=== PATIENT | female | born 1945 | race Caucasian/White ===

== ENCOUNTER 2017-03-18 22:24 | Inpatient (IN) ==
[2017-03-18] MEDS ORDERED: Lidocaine 1% 20 ML MDV INFILT ONE (22:36)
[2017-03-18] MEDS ORDERED: *HR* Morphine 2 MG/ML SYRINGE IVP ONE (22:49)
[2017-03-18] MEDS ORDERED: Ondansetron 4 MG/2 ML VIAL IVP ONE (23:12)
[2017-03-18] MEDS ORDERED: diazePAM 10 MG/2 ML SYRINGE IVP STA (23:24)
--- NOTE | 2017-03-18 23:34 | Emergency Department Note ---
Disposition Clinical Impression: Hypoxia Radial fracture Qualifiers: Encounter type: initial encounter Radius location: distal Fracture type: closed Fracture morphology: unspecified fracture morphology Laterality: left Qualified Code(s): S52.502A - Unspecified fracture of the lower end of left radius, initial encounter for closed fracture Ulna fracture Qualifiers: Encounter type: initial encounter Ulna location: distal Fracture type: closed Fracture morphology: unspecified fracture morphology Laterality: left Qualified Code(s): S52.602A - Unspecified fracture of lower end of left ulna, initial encounter for closed fracture Disposition: Admitted As Inpatient Condition: Good Time of Disposition: 03:15 Fall HPI - General Chief Complaint: ED Fall Stated Complaint: Fall Time Seen by Provider: 03/18/17 22:32 Source: patient, EMS Mode of arrival: EMS Limitations: no limitations Nursing Notes Reviewed: Yes Vital Signs Reviewed: Yes - History of Present Illness HPI Narrative: Patient is a 71-year-old female presents to the emergency department after a fall. She states that around 6:30 PM she fell backwards and tried to catch herself. She was evaluated at [facility] and x-rays were obtained showing fractures of both radius and ulna and she was transferred here. Patient states that when she fell she hit her head. No loss of consciousness. She denies any blood thinners. She currently is nauseated and in pain. She also states that her left hip hurts. She was standing at ground level when she fell backwards. Patient had some decreased sensation appears in some difficulty with movement of the fingers. - Related Data Home Medications Medication Instructions Recorded Confirmed Escitalopram [Lexapro] 10 mg PO DAILY 03/18/17 03/18/17 Meloxicam [Mobic] 7.5 mg PO BID PRN 03/18/17 03/18/17 Omeprazole 20 mg PO DAILY 03/18/17 03/18/17 Allergies Allergy/AdvReac Type Severity Reaction Status Date / Time aspirin Allergy See Verified 03/18/17 20:02 Comments codeine Allergy See Verified 03/18/17 20:02 Comments Sulfa (Sulfonamide Allergy Rash Verified 03/18/17 20:02 Antibiotics) Iodinated Contrast- Oral and AdvReac Hives Verified 03/18/17 22:26 IV Dye All systems ED: reviewed and negative except as stated. 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 Absent: respiratory distress, wheezes - Cardiovascular Cardiovascular exam: Present: regular rate, normal rhythm, +S1, +S2 - Abdominal Exam Abdominal exam: Present: soft, Non-Tender, normal bowel sounds - Extremities Exam Extremities exam: Present: other (Injury to the left wrist and forearm. Angulation of the left forearm) - Neurological Exam Neurological exam: Present: alert, oriented X3, CN II-XII intact - Psychiatric Psychiatric exam: Present: normal affect, normal mood - Skin Skin exam: Present: warm, dry, intact Course Vital Signs Temperature 97.5 F L 03/18/17 22:27 Pulse Rate 69 03/18/17 22:27 Respiratory Rate 20 03/18/17 22:27 Blood Pressure 151/65 03/18/17 22:27 O2 Sat by Pulse Oximetry 92 03/18/17 22:27 Temperature 97.5 F L 03/18/17 22:27 Pulse Rate 66 03/19/17 02:53 Respiratory Rate 16 03/19/17 03:11 Blood Pressure 0/0 03/19/17 03:11 O2 Sat by Pulse Oximetry 96 03/19/17 02:53 Oxygen Delivery Oxygen Delivery Room Air Procedures - Orthopedic Fracture Reduction Fracture #1 Consent Obtained: verbal consent Time Out Performed: No Side: left Fracture Reduction Location: radius, ulna ASA Classification: CLASS III-Severe systemic disease Analgesia: hematoma block Technique: direct manipulation, traction/counter-traction, finger traps Post Reduction X-rays Demonstrate: acceptable reduction Post-reduction neuro exam: intact Post-reduction vascular exam: intact Splint Applied: Yes (Sugar tong splint was applied post reduction) Patient Tolerated Procedure: well Fall - MDM Narrative Medical decision making narrative: Patient is a 71-year-old female that was transferred here for [facility]. She has a left forearm fracture. While talking to the patient she states that she also hit her head, has left upper arm pain, and left hip pain. We have ordered a CT of the head and neck, x-ray of the left humerus, and x-ray of the left hip. The patient has been put in to finger trap traction to try and help relax the muscles and reduce the fracture. Dr. Cespedes spoke with the orthopedist Dr. Robledo and he said that it would be reasonable to reduce it and splinted and they would see her tomorrow and do a surgical reduction. The patient's arm was reduced and post reduction films were ordered. On post-reduction films there was not full reduction so we attempted a second reduction. A second post reduction film was ordered. This is the best positioning that we could obtain from the reduction. Patient was neurovascularly intact post reduction After the reduction the patient remains hypoxic so we will admit the patient to the hospital.. - Medical Records Medical records reviewed: Yes I reviewed the patient's medical records. - Radiology Data Radiology results reviewed: Yes I reviewed the patient's radiology results. Forearm X-Ray 03/18/17 22:49 IMPRESSION: Acute fractures of the distal left radius and ulna. The radial fracture is dorsally displaced, mildly dorsally angulated and overlapped. D/ / Baldomero Davis MD / Baldomero Davis MD Interpreting Provider: Baldomero Davis MD Forearm X-Ray 03/18/17 22:49 IMPRESSION: Acute fractures of the distal left radius and ulna. The radial fracture is dorsally displaced, mildly dorsally angulated and overlapped. D/ / Baldomero Davis MD / Baldomero Davis MD Interpreting Provider: Baldomero Davis MD Wrist X-Ray 03/19/17 01:37 IMPRESSION: No change in alignment. D/ / Vamsi Ohara MD / Vamsi Ohara MD Interpreting Provider: Vamsi Ohara MD Chest X-Ray 03/19/17 02:16 IMPRESSION: Diffuse increased interstitial change throughout the lungs bilaterally, which may be chronic and related to COPD, though possibly related to pneumonitis or pulmonary edema as we have no comparison studies. Left basilar airspace disease which may represent atelectasis or pneumonia. D/ / Solitario Reyes MD / Solitario Reyes MD Interpreting Provider: Solitario Reyes MD Cervical Spine CT 03/19/17 22:49 IMPRESSION: No acute abnormality of the cervical spine. D/ / Vamsi Ohara MD / Vamsi Ohara MD Interpreting Provider: Vmasi Ohara MD Head CT 03/19/17 22:49 IMPRESSION: No acute intracranial abnormality. D/ / Katie Garza Cha, MD / Kaite Garza Cha, MD Interpreting Provider: Katie Garza Cha, MD Humerus X-Ray 03/19/17 22:49 IMPRESSION: No acute bony abnormality. D/ / Katie Garza Cha, MD / Katie Garza Cha, MD Interpreting Provider: Katie Garza Cha, MD Hip X-Ray 03/19/17 23:01 IMPRESSION: No evidence of an acute fracture. D/ / Baldomero Davis MD / Baldomero Davis MD Interpreting Provider: Baldomero Davis MD - EKG Data EKG attestation: Yes I reviewed and interpreted this EKG. EKG results narrative: EKG shows sinus rhythm with first-degree AV block and a heart rate of [address] interval 216 QRS duration 102 QTC of 434 with a slight left axis deviation. With an incomplete right bundle block Attestation Statement - Attestation Attestation: I, Daniel Bruno, examined this patient and my medical decision-making was reviewed with the OIL CHANGER/PA/Advanced Practice Nurse/Resident Physician. I agree with the documented findings, disposition and treatment plan as described except to the extent set forth below. 71-year-old female presents to the emergency department for evaluation of left forearm fracture. Patient apparently was reaching behind, lost balance and fell backward catching herself on her arm. Patient had immediate pain and deformity of the left forearm. Patient does report hitting her head but denies loss of consciousness. Patient describes this as a mechanical fall and denies near syncopal symptoms. On x-ray the patient has fractures of both the distal radius and ulna of the left forearm. There is dorsal angulation of the ulna at about 45 degrees, there is complete translocation and shortening of the radius. Resident spoke with Dr. Robledo who recommended using a finger trap, reducing the fractures and splinting with a sugar tong splint and following up in the office in the a.m. in order to schedule surgery. Patient is neurovascularly intact, and has good motion of the fingers of the left hand. After discussion of risks and benefits and verbal consent obtained. We performed a hematoma block of the fractures of the left arm and performed a reduction. This reduction improved the fracture but it did not reduce it completely. The reduction was again performed with a repeat x-ray which showed again improvement of the fracture however it is not completely in place. On reevaluation the patient became hypoxic after administration of morphine and Valium however it is been multiple hours since the administration of her medications and she desaturated to 85% on room air. Patient denies a history of lung disease. Chest x-ray does not show pneumothorax or hemothorax. Patient denies chest pain or feeling short of breath. Patient will be admitted to the hospital for further care and observation for her hypoxia and she will likely need to see his orthopedic surgeon in the a.m. for reevaluation of her fractures.
[2017-03-19] MEDS ORDERED: Ondansetron 4 MG/2 ML VIAL IVP ONE (00:43)
[2017-03-19] MEDS ORDERED: Promethazine 25 MG in 0.9 % Sodium Chloride 50 ML IVPB ONE (02:36)
[2017-03-19 04:03] LABS: Basophils % 0.6 %; Eosinophils % 0.3 %; Hematocrit 44.6 % (35.3-44.9); Hemoglobin 14.5 g/dL (11.5-15.4); Immature Granulocytes % 0.3 % (0-4); Immature Platelets 4.9 % (1.1-6.1); Lymphocytes % 14.4 %; Mean Corpuscular HGB Conc 32.5 g/dL (31.6-35.5); Mean Corpuscular Hemoglobin 30.9 pg (28.0-33.3); Mean Corpuscular Volume 95.1 fL (83.0-100.0); Mean Platelet Volume 10.3 fL (9.4-12.4); Monocytes # 0.5 K/mcL (0.0-1.3); Monocytes % 7.5 %; Neutrophils # 5.3 K/mcL (1.6-8.9); Platelet Count 222 K/mcL (140-400); Red Blood Count 4.69 M/mcL (3.82-4.97); Red Cell Distribution Width 12.7 % (11.5-14.5); Segmented Neutrophils % 76.9 %
[2017-03-19 04:17] LABS: BUN/Creatinine Ratio 28 (6-26); Blood Urea Nitrogen 25 mg/dL (7-20); Calcium 9.1 mg/dL (8.6-10.8); Carbon Dioxide 23 mEq/L (19-29); Chloride 109 mEq/L (98-109); Glucose 123 mg/dL (70-99); Osmolality,Calculated 298 (280-300); Potassium 4.2 mEq/L (3.5-4.5); Sodium 141 mEq/L (136-145); eGFR For African Americans > 60 (> 60); eGFR For Non-African Americans > 60 (> 60)
[2017-03-19] MEDS ORDERED: Naloxone 0.4 MG/ML INJ IVP PRN (05:51)
[2017-03-19] MEDS ORDERED: Ketorolac 30 MG/ML VIAL IVP PRN (05:51)
[2017-03-19] MEDS ORDERED: 0.9 % Sodium Chloride 1,000 ML IVC SCH (06:00)
--- NOTE | 2017-03-19 06:07 | Internal Med History&Physical ---
Date of Encounter: 03/19/17 Time of Encounter: 05:00 Assessment and Plan (1) Hypoxia Current visit: Yes Status: Acute Patient received morphine and Valium in the emergency department. I suspect her hypoxia is possibly related to her underlying COPD (Chronic h/o smoking and stopped about 5 years ago), and combination of morphine and valium (However acute pulmonary pathology need to be excluded). Will obtain ABG and check BNP. CXR reported "Diffuse increased interstitial change throughout the lungs bilaterally, which may be chronic and related to COPD, though possibly related to pneumonitis or pulmonary edema as we have no comparison studies. Left basilar airspace disease which may represent atelectasis or pneumonia." - WIll reapeat 2 view CXR. Will assess walking puls eox prior to discharge. (2) Fracture of radius, distal, with ulna, closed Current visit: Yes Status: Acute Pain relief with ketorolac. Orthopedic consultation Qualifiers: Encounter type: initial encounter Laterality: left Qualified Code(s): S52.502A - Unspecified fracture of the lower end of left radius, initial encounter for closed fracture; S52.602A - Unspecified fracture of lower end of left ulna, initial encounter for closed fracture (3) DVT prophylaxis Current visit: Yes Status: Acute Sub Q heparin to start after surgery Internal Medicine - H&P: HPI Chief complaint: Hypoxia Admitted From: Emergency Dept Plans for Post Hospital Care: Home History of present illness: Ms. Daley is a 71 year old female presented to the emergency department after a fall (mechanical fall with no loss of consciousness) and was evaluated at ER at [place] and x-rays were obtained showing fractures of both radius and ulna and she was transferred to the ER at [facility]. Imaging again showed Acute fractures of the distal left radius and ulna. CT scan of the head and cervical spine showed no acute fractures. ER provider discussed with Orthopedic surgeon Dr Betancourt and attempted reduction in the ER. The plan was for the pt to f /u with Dr Betancourt for operative reduction. However the patient became hypoxic after administration of morphine and Valium and hypoxic to 85% on room air. Hence she is admitted to the hospitalist service for further management. Patient reports pain in the left forearm, which is moderate and nonradiating. She denies significant shortness of breath, cough, expectoration, chest pain, fevers, chills, nausea, vomiting, abdominal pain, dysuria, hematuria, change in bowel habits. CXR done in the ER reported "Diffuse increased interstitial change throughout the lungs bilaterally, which may be chronic and related to COPD, though possibly related to pneumonitis or pulmonary edema as we have no comparison studies. Left basilar airspace disease which may represent atelectasis or pneumonia." Past Med Surg Social Fam HX - Past Medical History Medical history: arthritis, GERD Psychiatric history: depression - Social History Smoking Status: Former smoker Alcohol use: none Drug use: none - Family History Father Name: sulaiman lynn Living Status: Age at : 67 Cause of : lung cancer Hx Family Cancer: Yes (lung) Internal Medicine - H&P: Meds Escitalopram [Lexapro] 10 mg PO DAILY 03/18/17 [History] Meloxicam [Mobic] 7.5 mg PO BID PRN 03/18/17 [History] Omeprazole 20 mg PO DAILY 03/18/17 [History] Allergies aspirin Allergy (Verified 03/18/17 20:02) See Comments epistaxis codeine Allergy (Verified 03/18/17 20:02) See Comments unknown reaction, doctor told her not to take it Sulfa (Sulfonamide Antibiotics) Allergy (Verified 03/18/17 20:02) Rash Iodinated Contrast- Oral and IV Dye Adverse Reaction (Verified 03/18/17 22:26) Hives All Systems PM: A 10-system review of systems was performed and is negative for pertinent findings except as documented above in the HPI. - Constitutional Vitals: Temp Pulse Resp BP Pulse Ox 97.5 F L 66 16 0/0 90 03/18/17 22:27 03/19/17 02:53 03/19/17 03:11 03/19/17 03:11 03/19/17 03:43 Exam: General: Somnulent and easily arousable HEENT: Oral mucosa is dry. No conjunctival palor or scleral icterus Neck: No obvious neck swellings Lungs: Clear to auscultation Cardiac: Regular rate and rhythm. Systolic murmur present Abdomen: Soft, non tender. Bowel sounds present Genitourinary: No de jesus catheter Neurological: Somnulent and easily arousableand oriented. No gross localizing deficits Psych: Not aggressive or agitated Extremities: no significant leg edema. Cast to the left forearm present Skin: No generalized rash Internal Med - H&P Results - Labs CBC & Chem 7: 03/19/17 03:43 03/19/17 03:43 Labs: Short CBC 03/19/17 Range/Units 03:43 WBC 6.9 (4.3-11.1) K/mcL Hgb 14.5 (11.5-15.4) g/dL Hct 44.6 (35.3-44.9) % Plt Count 222 (140-400) K/mcL Neutrophils # 5.3 (1.6-8.9) K/mcL BMP 03/19/17 03:43 Sodium 141 Potassium 4.2 Chloride 109 Carbon Dioxide 23 BUN 25 H Creatinine 0.90 Glucose 123 H Calcium 9.1 - EKG Data -: EKG Interpreted by Myself EKG shows normal: sinus rhythm - EKG Data EKG comments: Q wave in lead III, T inversion in aVL 03/19/17 06:10 - Impressions ITS Impressions ITS Impressions Forearm X-Ray 03/18/17 22:49 IMPRESSION: Acute fractures of the distal left radius and ulna. The radial fracture is dorsally displaced, mildly dorsally angulated and overlapped. D/ / Baldomero Davis MD / Baldomero Davis MD Interpreting Provider: Baldomero Davis MD Wrist X-Ray 03/19/17 00:10 IMPRESSION: Distal radius and ulnar fractures. D/ / Katie Garza Cha, MD / Katie Garza Cha, MD Interpreting Provider: Katie Garza Cha, MD Wrist X-Ray 03/19/17 01:37 IMPRESSION: No change in alignment. D/ / Vamsi Ohara MD / Vamsi Ohara MD Interpreting Provider: Vamsi Ohara MD Chest X-Ray 03/19/17 02:16 IMPRESSION: Diffuse increased interstitial change throughout the lungs bilaterally, which may be chronic and related to COPD, though possibly related to pneumonitis or pulmonary edema as we have no comparison studies. Left basilar airspace disease which may represent atelectasis or pneumonia. D/ / Solitario Reyes MD / Solitario Reyes MD Interpreting Provider: Solitario Reyes MD Cervical Spine CT 03/19/17 22:49 IMPRESSION: No acute abnormality of the cervical spine. D/ / Vamsi Ohara MD / Vamsi Ohara MD Interpreting Provider: Vamsi Ohara MD Head CT 03/19/17 22:49 IMPRESSION: No acute intracranial abnormality. D/ / Katie Garza Cha, MD / Katie Garza Cha, MD Interpreting Provider: Katie Garza Cha, MD Humerus X-Ray 03/19/17 22:49 IMPRESSION: No acute bony abnormality. D/ / Katie Garza Cha, MD / Katie Garza Cha, MD Interpreting Provider: Katie Garza Cha, MD Hip X-Ray 03/19/17 23:01 IMPRESSION: No evidence of an acute fracture. D/ / Baldomero Davis MD / Baldomero Davis MD Interpreting Provider: Baldomero Davis MD
[2017-03-19] MEDS ORDERED: Pantoprazole 40 MG VIAL IVP SCH (06:30)
[2017-03-19 11:12] LABS: ABG Base Excess -0.1 mEq/L (-2.0 to 3.0); ABG HCO3 26.8 mEQ/L (21-27); ABG Oxygen Saturation 87 % (95-98); ABG PCO2 52 mmHg (35-45); ABG PH 7.32 pH Units (7.32-7.45); ABG PO2 58 mmHg (85-104); ABG TCO2 28.4 mEq/L (20-26); Blood Gas FiO2 32 %
[2017-03-19] MEDS ORDERED: Ipratropium/Albuterol Neb 3 ML IH PRN (13:46)
--- NOTE | 2017-03-19 13:57 | Internal Med Progress Note ---
Date of Encounter: 03/19/17 Time of Encounter: 13:55 - Time Spent With Patient 1. Acute hypoxia - medication induced 2. Chronic COPD - not on home O2 dependent Her hypoxia mostly due to heavy high dose morphine / valium induced also some physical deconditioning noticed will try to wean her off the O2 as she tolerates may need home O2 eval in AM d/c IVF cut back on pain meds PT / OT eval ordered Duonebs PRN ordered encourage frequent spirometry 3. Left distal radius and ulnar fx Splint on Ortho on board possible surgery in one week PT / OT eval ordered - Subjective Interval history: Ms. Daley is a 71 year old female presented to the emergency department after a fall (mechanical fall with no loss of consciousness) and was evaluated at ER at [place] and x-rays were obtained showing fractures of both radius and ulna and she was transferred to the ER at [facility]. Imaging again showed Acute fractures of the distal left radius and ulna. CT scan of the head and cervical spine showed no acute fractures. ER provider discussed with Orthopedic surgeon Dr Betancourt and attempted reduction in the ER. The plan was for the pt to f /u with Dr Betancourt for operative reduction. However the patient became hypoxic after administration of morphine and Valium and hypoxic to 85% on room air. Hence she is admitted to the hospitalist service for further management. Pt is still on O2 NC, however she is more alert, awake and O x3. Denied any CP / SOB. Still c/o severe pain in Left forearm - Constitutional Vitals: Temp Pulse Resp BP Pulse Ox 98.0 F 69 20 98/63 93 03/19/17 10:56 03/19/17 10:56 03/19/17 10:56 03/19/17 10:56 03/19/17 10:56 General appearance: Present: A&O X 3, pleasant - Respiratory Respiratory exam: Present: decreased breath sounds, wheezes. Absent: rales, respiratory distress, rhonchi - Cardiovascular Cardiovascular exam: Present: RRR, +S1, +S2. Absent: diastolic murmur, gallop, rubs, systolic murmur - GI/Abdominal GI/Abdominal exam: Present: soft. Absent: rebound, rigid, tenderness - Extremities Exam Additional comments: splint placed on Lefr fore arm and wrist. able to wigle her left hand fingers.. no swelling noticed. Internal Medicine: Result - Labs CBC & Chem 7: 03/19/17 03:43 03/19/17 03:43 Labs: Short CBC 03/19/17 Range/Units 03:43 WBC 6.9 (4.3-11.1) K/mcL Hgb 14.5 (11.5-15.4) g/dL Hct 44.6 (35.3-44.9) % Plt Count 222 (140-400) K/mcL Neutrophils # 5.3 (1.6-8.9) K/mcL BMP 03/19/17 03:43 Sodium 141 Potassium 4.2 Chloride 109 Carbon Dioxide 23 BUN 25 H Creatinine 0.90 Glucose 123 H Calcium 9.1 - ABG Interpretation ABG results: ABG ABG pH 7.32 pH Units (7.32-7.45) 03/19/17 11:00 ABG pCO2 52 mmHg (35-45) H 03/19/17 11:00 ABG pO2 58 mmHg (85-104) L 03/19/17 11:00 ABG O2 Saturation 87 % (95-98) L 03/19/17 11:00 - Impressions Impressions Chest X-Ray 03/19/17 06:17 IMPRESSION: Stable exam. D/ / 03/19/2017 07:52:46 Larry Zacarias MD / jessica Interpreting Provider: Larry Zacarias MD Cervical Spine CT 03/19/17 22:49 IMPRESSION: No acute abnormality of the cervical spine. D/ / Vamsi Ohara MD / Vamsi Ohara MD Interpreting Provider: Vamsi Ohara MD Head CT 03/19/17 22:49 IMPRESSION: No acute intracranial abnormality. D/ / Katie Garza Cha, MD / Katie Garza Cha, MD Interpreting Provider: Katie Garza Cha, MD Humerus X-Ray 03/19/17 22:49 IMPRESSION: No acute bony abnormality. D/ / Katie Garza Cha, MD / Katie Garza Cha, MD Interpreting Provider: Katie Garza Cha, MD Hip X-Ray 03/19/17 23:01 IMPRESSION: No evidence of an acute fracture. D/ / Baldomero Davis MD / Baldomero Davis MD Interpreting Provider: Baldomero Davis MD Consult Discharge Plan - Plan Referrals: Unassigned,Provider [Primary Care Provider] -
--- NOTE | 2017-03-19 13:57 | Orthopedic Consult Note ---
Date of Encounter: 03/19/17 Time of Encounter: 13:15 Assessment and Plan (1) Fracture of radius, distal, with ulna, closed Current Visit: Yes Status: Acute Patient has left distal radius and ulnar fractures which will require surgical fixation. Dr. Betancourt will perform left distal radius and distal ulnar ORIF next week on outpatient basis. The procedure as well as r/b/a were discussed with patient and family who expressed understanding and consent for surgery was signed. steel turner from office with call patient on 03/22/17 to schedule this. Discussed with hospitalist and he will confirm medical clearance for surgery. Keep splint in place until surgery. Continue to elevate and ice left arm. Continue finger ROM. Pain control per hospitalist. Qualifiers: Encounter type: initial encounter Laterality: left Qualified Code(s): S52.502A - Unspecified fracture of the lower end of left radius, initial encounter for closed fracture; S52.602A - Unspecified fracture of lower end of left ulna, initial encounter for closed fracture History of Present Illness Chief complaint: left wrist pain HPI: Ms. Daley is a 71 year old female who fell yesterday after losing her balance and fell on outstretched hands. She has instant left wrist pain. Xrays in ER showed left distal radius and distal ulna fractures which were reduced in the ER last night. Patient did become hypoxic and was admitted for this. She is feeling better today but continues to have moderate constant aching pain in the wrist since the fall and admits to numbness/tingling in fingers. Denies chest pain, SOB, fever currently. Past Med Surg Social Fam HX - Past Medical History Medical history: arthritis, GERD Psychiatric history: depression - Social History Smoking Status: Former smoker Alcohol use: none Drug use: none - Family History Father Name: sulaiman lynn Living Status: Age at : 67 Cause of : lung cancer Hx Family Cancer: Yes (lung) Medications and Allergies Escitalopram [Lexapro] 10 mg PO DAILY 03/18/17 [History] Omeprazole 20 mg PO DAILY 03/18/17 [History] Ibuprofen [Motrin] 200 - 800 mg PO Q6HR PRN 03/19/17 [History] Allergies aspirin Allergy (Verified 03/18/17 20:02) See Comments epistaxis codeine Allergy (Verified 03/18/17 20:02) See Comments unknown reaction, doctor told her not to take it Sulfa (Sulfonamide Antibiotics) Allergy (Verified 03/18/17 20:02) Rash Iodinated Contrast- Oral and IV Dye Adverse Reaction (Verified 03/18/17 22:26) Hives All Systems Reviewed: A 10-system review of systems was performed and is negative for pertinent findings except as documented above in the HPI. - Constitutional Constitutional: as per HPI - Cardiovascular Cardiovascular: as per HPI - Respiratory Respiratory: as per HPI - Musculoskeletal Musculoskeletal: as per HPI Physical Exam - Constitutional Vitals: Temp Pulse Resp BP Pulse Ox 98.0 F 69 20 98/63 93 03/19/17 10:56 03/19/17 10:56 03/19/17 10:56 03/19/17 10:56 03/19/17 10:56 - Wrist & Hand left Location of pain: dorsal wrist, volar wrist (left sugar tong splint intact and clean, mild swelling and ecchymosis to fingers. limited ROM of fingers secondary to pain. NV intact with brisk cap refill.) Results - Labs Result Diagrams: 03/19/17 03:43 03/19/17 03:43 Labs: Abnormal lab results ABG pCO2 52 mmHg (35-45) H 03/19/17 11:00 ABG pO2 58 mmHg (85-104) L 03/19/17 11:00 ABG Total CO2 28.4 mEq/L (20-26) H 03/19/17 11:00 ABG O2 Saturation 87 % (95-98) L 03/19/17 11:00 BUN 25 mg/dL (7-20) H 03/19/17 03:43 BUN/Creatinine Ratio 28 (6-26) H 03/19/17 03:43 Glucose 123 mg/dL (70-99) H 03/19/17 03:43 B-Natriuretic Peptide 115 pg/mL (0-100) H 03/19/17 03:43 H & H 03/19/17 Range/Units 03:43 Hgb 14.5 (11.5-15.4) g/dL Hct 44.6 (35.3-44.9) % All other labs normal. - Diagnostic results Wrist/Hand x-ray: report reviewed, image reviewed Consult Discharge Plan - Plan Referrals: Unassigned,Provider [Primary Care Provider] - - Attending Attestation Case and plan of care discussed with supervising physician who was available for all aspects of care.
[2017-03-19] MEDS: traMADol 50 MG TABLET PO PRN ×2 (14:45→20:52)
--- NOTE | 2017-03-19 17:28 | Electrocardiograph Report ---
[address] [address] Test Date: 2017-03-19 Pat Name: Ester Daley Department: 102 Room: [facility] Gender: F Alarm Signaler: Soledad : 1945 Requested By: Torrey Lux Order Number: [id number] Reading MD: Brian Samaniego DO Measurements Intervals [place] Rate: 66 P: 44 NC: 216 QRS: -21 QRSD: 102 T: 19 QT: 421 QTc: 434 Interpretive Statements SINUS RHYTHM WITH FIRST DEGREE AV BLOCK LEFTWARD AXIS INCOMPLETE RIGHT BUNDLE BRANCH BLOCK Electronically Signed On 03-19-2017 17:26:53 EDT by Brian Samaniego DO
[2017-03-20] MEDS: traMADol 50 MG TABLET PO PRN ×4 (03:52→22:35)
--- NOTE | 2017-03-20 12:41 | Internal Med Progress Note ---
Date of Encounter: 03/20/17 Time of Encounter: 12:39 - Assessment and plan (1) Acute respiratory failure with hypoxia Current Visit: Yes Status: Acute Assessment and plan: Pt is still hypoxic However her HR / RR everything benign Pt does not seem to be in severe SOB / QIU reviewed f/u CXR this AM - no acute changes noticed Her hypoxia could be due to underling COPD with current de conditioning will change her RENAN Duoneb Encourage more frequent incentive spirometry may need to go home on O2 will talk to CM / SW pt is not in COPD exacerbation no need of INH /Systemic steroids Pt may need to stay in the hospital more than 2 nights due to her complex medical problems, so will switch her to full admission today. I reviewed Dr. Chinchilla's H & P including HPI, PMH, PSH ,SH, FH and ROS, no changes noticed (2) COPD (chronic obstructive pulmonary disease) Current Visit: Yes Status: Chronic Assessment and plan: not in exacerbation cont duoneb and o2 Qualifiers: Qualified Code(s): J44.9 - Chronic obstructive pulmonary disease, unspecified (3) Former heavy cigarette smoker (20-39 per day) Current Visit: Yes Status: Acute Assessment and plan: Pt did quit smoking 5 yrs ago (4) Fracture of radius, distal, with ulna, closed Current Visit: Yes Status: Acute Assessment and plan: cont splint cont Tramadol PRN PT / OT Ortho scheduled for surgery as an out pt Qualifiers: Encounter type: initial encounter Laterality: left Qualified Code(s): S52.502A - Unspecified fracture of the lower end of left radius, initial encounter for closed fracture; S52.602A - Unspecified fracture of lower end of left ulna, initial encounter for closed fracture (5) DVT prophylaxis Current Visit: Yes Status: Acute Assessment and plan: on Lovenox - Subjective Interval history: Ms. Daley is a 71 year old female presented to the emergency department after a fall (mechanical fall with no loss of consciousness) and was evaluated at ER at [place] and x-rays were obtained showing fractures of both radius and ulna and she was transferred to the ER at [facility]. Imaging again showed Acute fractures of the distal left radius and ulna. CT scan of the head and cervical spine showed no acute fractures. ER provider discussed with Orthopedic surgeon Dr Betancourt and attempted reduction in the ER. The plan was for the pt to f /u with Dr Betancourt for operative reduction. However the patient became hypoxic after administration of morphine and Valium and hypoxic to 85% on room air. Hence she is admitted to the hospitalist service for further management. Pt is still on O2 NC at 3 lit, however she is more alert, awake and O x3. Denied any CP / SOB. Pain in Left forearm is tolerable with Tramadol pain meds - Constitutional Vitals: Temp Pulse Resp BP Pulse Ox 98.4 F 76 16 119/67 95 03/20/17 06:18 03/20/17 06:18 03/20/17 06:18 03/20/17 06:18 03/20/17 06:18 General appearance: Present: A&O X 3, pleasant - Respiratory Respiratory exam: Present: decreased breath sounds, wheezes. Absent: rales, respiratory distress, rhonchi - Cardiovascular Cardiovascular exam: Present: RRR, +S1, +S2. Absent: diastolic murmur, gallop, rubs, systolic murmur - GI/Abdominal GI/Abdominal exam: Present: normal bowel sounds, soft. Absent: rebound, tenderness - Extremities Exam Additional comments: splint placed on Lefr fore arm and wrist. able to wiggle her left hand fingers.. no swelling noticed. - Psychiatric Psychiatric exam: Present: normal affect, normal mood Internal Medicine: Result - Labs CBC & Chem 7: 03/19/17 03:43 03/19/17 03:43 - ABG Interpretation ABG results: ABG ABG pH 7.32 pH Units (7.32-7.45) 03/19/17 11:00 ABG pCO2 52 mmHg (35-45) H 03/19/17 11:00 ABG pO2 58 mmHg (85-104) L 03/19/17 11:00 ABG O2 Saturation 87 % (95-98) L 03/19/17 11:00 - Impressions Impressions Chest X-Ray 03/20/17 09:55 IMPRESSION: Chronic findings without acute process. D/ / Amanda Nava MD / Amanda Nava MD Interpreting Provider: Amanda Nava MD Consult Discharge Plan - Plan Referrals: Unassigned,Provider [Primary Care Provider] -
[2017-03-20] MEDS: Ipratropium/Albuterol Neb 3 ML IH SCH ×2 (16:01→21:35)
[2017-03-21] MEDS: Ipratropium/Albuterol Neb 3 ML IH SCH ×3 (04:10→15:39)
[2017-03-21] MEDS: traMADol 50 MG TABLET PO PRN ×2 (04:57→12:13)
[2017-03-21] MEDS ORDERED: *HR* Enoxaparin 40 MG/0.4 ML SYRINGE SQ SCH (06:00)
[2017-03-21 12:42] VITALS: BP 117/68
--- NOTE | 2017-03-21 12:48 | Discharge Summary ---
Date of Encounter: 03/21/17 Time of Encounter: 12:46 - Discharge Diagnosis (1) Acute respiratory failure with hypoxia Priority: Primary Status: Acute Comments: needed continuous home O2 at 2 lit (2) COPD (chronic obstructive pulmonary disease) Priority: Secondary Status: Chronic Qualifiers: Qualified Code(s): J44.9 - Chronic obstructive pulmonary disease, unspecified (3) Former heavy cigarette smoker (20-39 per day) Priority: Secondary Status: Acute (4) Fracture of radius, distal, with ulna, closed Priority: Primary Status: Acute Qualifiers: Encounter type: initial encounter Laterality: left Qualified Code(s): S52.502A - Unspecified fracture of the lower end of left radius, initial encounter for closed fracture; S52.602A - Unspecified fracture of lower end of left ulna, initial encounter for closed fracture - Discharge Medications Home Medications: Escitalopram [Lexapro] 10 mg PO DAILY 03/18/17 [History] Omeprazole 20 mg PO DAILY 03/18/17 [History] Ibuprofen [Motrin] 200 - 800 mg PO Q6HR PRN 03/19/17 [History] Albuterol Sulfate [Ventolin Hfa] 18 gm IH Q6H PRN #1 [id number] 03/21/17 [Rx] Allergies/Adverse Reactions: Allergies aspirin Allergy (Verified 03/18/17 20:02) See Comments epistaxis codeine Allergy (Verified 03/18/17 20:02) See Comments unknown reaction, doctor told her not to take it Sulfa (Sulfonamide Antibiotics) Allergy (Verified 03/18/17 20:02) Rash Iodinated Contrast- Oral and IV Dye Adverse Reaction (Verified 03/18/17 22:26) Hives Date of admission: 03/20/17 12:37 Primary care physician: Provider Unassigned Consults: Ortho Dr. Spike Betancourt - Patient Status Disposition: Home, Self-Care Condition: Good - Discharge Instructions Follow Up With: Unassigned,Provider [Primary Care Provider] - - Diet and Activity Activity: as per physical therapy, increase activity as tolerated Diet: advance to your usual diet Hospital course: Ms. Daley is a 71 year old female presented to the emergency department after a fall (mechanical fall with no loss of consciousness) and was evaluated at ER at [place] and x-rays were obtained showing fractures of both radius and ulna and she was transferred to the ER at [facility]. Imaging again showed Acute fractures of the distal left radius and ulna. CT scan of the head and cervical spine showed no acute fractures. ER provider discussed with Orthopedic surgeon Dr Betancourt and attempted reduction in the ER. The plan was for the pt to f /u with Dr Betancourt for operative reduction. However the patient became hypoxic after administration of morphine and Valium and hypoxic to 85% on room air. Hence she is admitted to the hospitalist service for further management. Pt was paced in observation and continued symptomatic and supportive care. We tried to wean her off the O2, but she still required 2 lit O2 continuously. Her initial hypoxia could be due to pain medication, however it seems to she does have COPD which might be contributing to her hypoxia. So we will arrange for home O2 for her to go home. need out pt f/u with PCP and possible pulmonary function tests as an out pt. Regarding Left forearm fx, pt was seen by ortho Dr. Spike Betancourt who recommend to cont current plint and f/u with him as an out pt in one week he will schedule for out pt surgery. Pt getting discharged home in stable condition today. Since she is still functioning well,does walk around a lot, she may need portable home O2 too. Will talk to about this. - Time Spent with Patient Total time spent providing and/or coordinating discharge services: - Constitutional Vitals: Temp Pulse Resp BP Pulse Ox 98.5 F 87 16 117/68 91 03/21/17 10:15 03/21/17 10:15 03/21/17 10:22 03/21/17 10:15 03/21/17 10:22 General appearance: Present: A&O X 3, pleasant - Respiratory Respiratory exam: Present: decreased breath sounds. Absent: accessory muscle use, rales, respiratory distress, rhonchi, stridor, wheezes, tachypnea - Cardiovascular Cardiovascular exam: Present: RRR, +S1, +S2. Absent: diastolic murmur, gallop, rubs, systolic murmur - GI/Abdominal GI/Abdominal exam: Present: normal bowel sounds, soft. Absent: distended, rebound, rigid - Extremities Exam Additional comments: splint placed on Left fore arm and wrist. able to wiggle her left hand fingers.. no swelling noticed.
== END 2017-03-21 16:10 | disposition home or self-care (01) | DRG 189 ==
LOC: EMEROO 22:24 → INTOOBSV 03-19 02:47 → 3NENU 03-19 02:47
PROVIDERS: ADMIT Pediatrics; ATTEND Family Medicine

== ENCOUNTER 2022-03-20 13:23 | Inpatient (IN) ==
[2022-03-20] MEDS ORDERED: *HR* FentaNYL (PF) 100 MCG/2 ML VIAL IVP ONE (15:08)
[2022-03-20 15:18] LABS: Basophils % 0.5 %; Eosinophils # 0.1 K/mcL (0.0-0.6); Eosinophils % 0.7 %; Hematocrit 45.5 % (35.3-44.9); Hemoglobin 15.2 g/dL (11.5-15.4); Immature Granulocytes % 0.2 % (0-4); Lymphocytes # 1.3 K/mcL (0.6-4.6); Lymphocytes % 15.6 %; Mean Corpuscular HGB Conc 33.4 g/dL (31.6-35.5); Mean Corpuscular Volume 95.8 fL (83.0-100.0); Mean Platelet Volume 10.4 fL (9.4-12.4); Monocytes # 0.4 K/mcL (0.0-1.3); Monocytes % 5.2 %; Neutrophils # 6.3 K/mcL (1.6-8.9); Platelet Count 169 K/mcL (140-400); Red Blood Count 4.75 M/mcL (3.82-4.97); Red Cell Distribution Width 12.6 % (11.5-14.5); Segmented Neutrophils % 77.8 %; White Blood Count 8.1 K/mcL (4.3-11.1)
[2022-03-20] MEDS ORDERED: Ketamine *HR* 500 MG/10 ML MDV IV ONE (15:25)
[2022-03-20] MEDS ORDERED: *HR* Propofol 200 MG/20 ML VIAL IVP SCH (15:30)
[2022-03-20] MEDS ORDERED: Ketamine HCL *QUVA* 50mg (1mL) SYRINGE ONE (15:43)
[2022-03-20 15:48] LABS: Calcium 9.8 mg/dL (8.6-10.3); Potassium 4.7 mEq/L (3.5-5.1)
[2022-03-20] MEDS ORDERED: Famotidine 20 MG/2 ML VIAL IVP ONE (15:52)
[2022-03-20] MEDS ORDERED: Naloxone 0.4 MG/ML INJ IVP PRN ×2 (15:53→19:43)
[2022-03-20] MEDS ORDERED: Acetaminophen IV 1,000 MG/100 ML BAG IVPB ONE ×2 (15:53→19:43)
[2022-03-20] MEDS ORDERED: Acetaminophen 325 MG TABLET PO PRN ×2 (15:53→19:43)
[2022-03-20] MEDS ORDERED: *HR* OxyCODONE Immed Rel 5 MG TABLET PO PRN ×3 (15:53→19:43)
[2022-03-20] MEDS ORDERED: *HR* HYDROcodone/Acet 5/325 mg TABLET PO PRN ×2 (15:53→19:43)
[2022-03-20] MEDS ORDERED: Lidocaine -MPF 2% 5 ML VIAL ONE (15:54)
[2022-03-20] MEDS ORDERED: Lidocaine HCL 4 ML Topical Solution (Laryng-O-Jet Kit Sterile Pak) TP ONE (15:54)
[2022-03-20] MEDS ORDERED: Ondansetron 4 MG/2 ML VIAL ONE (15:54)
[2022-03-20] MEDS ORDERED: *HR* FentaNYL (PF) 100 MCG/2 ML VIAL ONE (15:55)
[2022-03-20] MEDS ORDERED: *HR* Propofol 200 MG/20 ML VIAL IVP ONE (15:55)
[2022-03-20] MEDS ORDERED: Ropivacaine/PF 0.5% 30 ML VIAL ONE (15:57)
[2022-03-20] MEDS ORDERED: ROPIVACAINE/PF/NS 0.25% 1 EACH SYRINGE INTRAART ONE (15:58)
[2022-03-20] MEDS ORDERED: Lidocaine -MPF 4% 5 ML AMPUL ONE (15:59)
[2022-03-20] MEDS ORDERED: *HR* Succinylcholine 200 MG/10 ML VIAL IVP ONE (16:47)
[2022-03-20] MEDS ORDERED: Lidocaine/EPI 1:200k 1% PF 10 ML VIAL ONE (16:47)
[2022-03-20] MEDS ORDERED: Ondansetron 4 MG/2 ML VIAL IVP PRN ×2 (18:04→19:43)
[2022-03-21] MEDS ORDERED: CeFAZolin 2,000 MG/120 ML BAG IVPB SCH (01:00)
[2022-03-21] MEDS: CeFAZolin 2,000 MG/120 ML BAG IVPB SCH ×2 (02:03→10:17)
[2022-03-21 05:27] LABS: Hematocrit 44.6 % (35.3-44.9); Hemoglobin 14.5 g/dL (11.5-15.4); Immature Granulocytes % 0.3 % (0-4); Lymphocytes % 9.2 %; Mean Corpuscular HGB Conc 32.5 g/dL (31.6-35.5); Mean Corpuscular Hemoglobin 31.7 pg (28.0-33.3); Mean Corpuscular Volume 97.4 fL (83.0-100.0); Mean Platelet Volume 10.4 fL (9.4-12.4); Platelet Count 157 K/mcL (140-400); Red Blood Count 4.58 M/mcL (3.82-4.97); Red Cell Distribution Width 12.4 % (11.5-14.5); Segmented Neutrophils % 89.2 %
[2022-03-21 05:28] LABS: Basophils % 0.3 %; Lymphocytes # 0.7 K/mcL (0.6-4.6); Monocytes # 0.1 K/mcL (0.0-1.3); Neutrophils # 7.1 K/mcL (1.6-8.9)
[2022-03-21 05:46] LABS: Albumin 3.9 g/dL (3.5-5.7); Albumin/Globulin Ratio 1.5 (1.1-2.2); Bilirubin,Total 0.7 mg/dL (0.3-1.0); Globulin 2.6 g/dL (2.4-3.5); Potassium 5.3 mEq/L (3.5-5.1); Total Protein 6.5 g/dL (6.4-8.9)
[2022-03-21] MEDS ORDERED: Fluticasone Propionate Nasal 50 MCG/SPRAY BOTTLE NS PRN (08:18)
[2022-03-21] MEDS ORDERED: Ringers Solution, Lactated 1,000 ML IVC SCH (08:30)
[2022-03-21] MEDS: (Ezetimibe [Zetia] 10 MG Tablet) PO SCH (10:18)
[2022-03-21] MEDS: *HR* Heparin 5,000 UNIT/ML VIAL SQ SCH ×2 (13:09→21:03)
[2022-03-21] MEDS: *HR* HYDROcodone/Acet 5/325 mg TABLET PO PRN (14:18)
[2022-03-21] MEDS: *HR* OxyCODONE Immed Rel 5 MG TABLET PO PRN (21:03)
[2022-03-22] MEDS: *HR* HYDROcodone/Acet 5/325 mg TABLET PO PRN ×2 (05:06→09:16)
[2022-03-22] MEDS: *HR* Heparin 5,000 UNIT/ML VIAL SQ SCH ×3 (05:06→21:03)
[2022-03-22 05:23] LABS: Basophils % 0.2 %; Eosinophils % 0.2 %; Immature Granulocytes % 0.3 % (0-4); Lymphocytes # 1.9 K/mcL (0.6-4.6); Lymphocytes % 19.9 %; Mean Corpuscular HGB Conc 32.6 g/dL (31.6-35.5); Mean Corpuscular Hemoglobin 31.7 pg (28.0-33.3); Mean Corpuscular Volume 97.1 fL (83.0-100.0); Mean Platelet Volume 10.8 fL (9.4-12.4); Monocytes # 0.7 K/mcL (0.0-1.3); Monocytes % 6.9 %; Neutrophils # 6.9 K/mcL (1.6-8.9); Platelet Count 147 K/mcL (140-400); Segmented Neutrophils % 72.5 %; White Blood Count 9.5 K/mcL (4.3-11.1)
[2022-03-22 05:27] LABS: Hemoglobin 11.1 g/dL (11.5-15.4)
[2022-03-22 05:37] LABS: Albumin 3.3 g/dL (3.5-5.7); Albumin/Globulin Ratio 1.5 (1.1-2.2); Bilirubin,Total 0.5 mg/dL (0.3-1.0); Calcium 8.7 mg/dL (8.6-10.3); Globulin 2.2 g/dL (2.4-3.5); Potassium 4.1 mEq/L (3.5-5.1); Total Protein 5.5 g/dL (6.4-8.9)
[2022-03-22] MEDS: (Ezetimibe [Zetia] 10 MG Tablet) PO SCH (09:15)
[2022-03-22] MEDS: *HR* OxyCODONE Immed Rel 5 MG TABLET PO PRN ×2 (13:17→19:27)
[2022-03-23 04:13] LABS: Calcium 8.8 mg/dL (8.6-10.3); Potassium 4.2 mEq/L (3.5-5.1)
[2022-03-23] MEDS: *HR* Heparin 5,000 UNIT/ML VIAL SQ SCH ×2 (06:02→14:13)
[2022-03-23] MEDS: *HR* OxyCODONE Immed Rel 5 MG TABLET PO PRN (06:09)
[2022-03-23] MEDS: (Ezetimibe [Zetia] 10 MG Tablet) PO SCH (08:19)
[2022-03-23] MEDS ORDERED: Ringers Solution, Lactated 500 ML IVC ONE (08:36)
[2022-03-23 14:43] VITALS: BP 98/59; PULSE 73; TEMP 97.5; O2SAT 97
[2022-03-23 15:29] LABS: Calcium 8.8 mg/dL (8.6-10.3); Potassium 3.9 mEq/L (3.5-5.1)
== END 2022-03-23 17:58 | disposition home health service (06) | DRG 493 ==
LOC: 4WAOSI 13:23 → EMEROOARM 13:23 → SUATTDRO 15:25 → 4WAOSI 19:15
PROVIDERS: ADMIT Student in an Organized Health Care Education/Training Program; ATTEND Family Medicine